=== PATIENT | male | born 1960 | race Caucasian/White ===

== ENCOUNTER 2022-07-16 14:14 | Emergency (ER) | payer OTHER, MEDICARE ==
[~2022-07-16] VITALS: Ht 175.3 cm; Wt 95.0 kg
[2022-07-16] VITALS (10 sets, daily range): BP systolic 115–137; BP diastolic 81–88
[2022-07-16] MEDS ORDERED: MEMANTINE HYDROC5 MG PO (14:34)
[2022-07-16] MEDS ORDERED: ZOLPIDEM10 M1 PO (14:35)
[2022-07-16] MEDS ORDERED: DONEPEZIL10 MG PO (14:35)
[2022-07-16] MEDS ORDERED: LORATADINE10 M1 PO (14:36)
[2022-07-16] MEDS ORDERED: TESTOSTERONE TOP (14:37)
[2022-07-16] MEDS ORDERED: ANASTROZOLE1 MG PO (14:38)
[2022-07-16] MEDS ORDERED: TRAMADOL HYDROC50 M1 PO (16:42)
[2022-07-16] MEDS ORDERED: PREDNISONE50 MG PO (16:42)
[2022-07-16] MEDS ORDERED: HUMIRA40 MG/0.4 (16:57)
== END 2022-07-16 17:02 | disposition home or self-care (01) | DRG 563 ==
LOC: ED 14:14
DX: S29.012A Strain of muscle and tendon of back wall of thorax, initial encounter (principal); S39.012A Strain of muscle, fascia and tendon of lower back, initial encounter; V43.52XA Car driver injured in collision with other type car in traffic accident, initial encounter